=== PATIENT | female | born 1970 ===

== ENCOUNTER → 2018-08-24 | Outpatient (CLI) | payer MEDICAID | LOC: FIMAGING 11:01 | PROVIDERS: ATTEND Obstetrics & Gynecology | DX: Z12.31 Encounter for screening mammogram for malignant neoplasm of breast (principal); R10.2 Pelvic and perineal pain; Z90.710 Acquired absence of both cervix and uterus ==

== ENCOUNTER → 2018-09-14 | Outpatient (CLI) | payer MEDICAID | LOC: FIMAGING 08:39 | PROVIDERS: ATTEND Obstetrics & Gynecology | DX: Z00.00 Encounter for general adult medical examination without abnormal findings (principal) ==